=== PATIENT | female | born 1945 | race Caucasian/White ===

== ENCOUNTER 2017-06-05 08:40 | Emergency (ER) | payer MEDICARE ==
[~2017-06-05] VITALS: Ht 157.5 cm; Wt 80.0 kg
[~2017-06-05 08:40] MED LIST: AMLODIPINE BESYL5 MG PO; AMOXICILLIN/CL875 MG OR; BENAZEPRIL40 MG PO; CIPROFLOXACN500 MG PO; CLONIDINE0.2 MG PO; COUMADIN5 MG; FLORASTOR250 M1 PO; FLUZONE SPLT1 M1 IM; GABAPENTIN300 MG PO; GLUCOSAMINE CHO1 CAP PO; HYDROCHLOROT12.5 MG PO; HYDROXYZ HCL25 MG PO; KEFLEX500 M1 PO; KEFLEX500 MG PO; KENALOG-4040 MG/ML IC; LEVOTHROID100 MCG PO; LEVOTHYROXIN100 MCG PO; LEVOTHYROXIN112 MC1 PO; LEVOTHYROXIN125 MC1 PO; LOSARTAN POT50 MG PO; LOTREL1 CA1 OR; METRONIDAZOL500 MG PO; METRONIDAZOLE500 MG PO; NABUMETONE500 MG PO; NIFEDIPINE ER90 MG PO; OXYBUTYNIN5 M1 PO; SPIRONOLACT25 MG PO; SPIRONOLACTONE25 MG PO; SYNTHROID112 MCG OR; TRAMADOL HCL50 MG PO; VITAMIN B-121000 MCG PO; WARFARIN2.5 MG PO; WARFARIN5 MG PO; WATER PILL; ZOSTAVAX IM
[2017-06-05 08:51] VITALS: BP 187/90
[2017-06-05] MEDS ORDERED: METFORMIN500 M1 PO (09:06)
[2017-06-05 09:53] LABS: HEMATOCRIT 46.4 % (37.0-47.0); HEMOGLOBIN 14.9 g/dl (12.0-16.0); IMMATURE GRANULOCYTES 0.8 % (0.0-1.0); MEAN CORPUSCULAR HGB 27.3 pG CALC (26.0-32.0); MEAN CORPUSCULAR HGB CONC 32.1 g/L CALC (32.0-36.0); NEUT# 5.76 thou/uL (2.00-7.15); RED BLOOD COUNT 5.46 mill/uL (4.20-5.60); RED CELL DISTRI WIDTH 18.8 % (11.5-15.5)
[2017-06-05 10:50] LABS: ALBUMIN 4.1 g/dL (3.2-5.0); ALKALINE PHOSPHATASE 60 u/l (38-126); AMYLASE < 30 u/l (30-110); ANION GAP 17 (6-22 (CALC)); BILIRUBIN, TOTAL 0.9 mg/dL (0.0-1.4); BUN 18 mg/dL (8-23); BUN/CREATININE RATIO 26 (12-20 (CALC)); CALCIUM 9.4 mg/dL (8.4-10.2); CARBON DIOXIDE 26 mmol/l (22-30); CHLORIDE 101 mmol/l (95-108); CREATININE 0.7 mg/dL (0.5-1.0); GFR > 60 ML/MIN (>=60 (CALC)); GFR FOR AFR.AMER. > 60 ML/MIN (>=60 (CALC)); GLUCOSE 157 mg/dL (82-115); LIPASE 53 u/l (23-300); POTASSIUM 3.8 mmol/l (3.5-5.1); SGOT/AST 25 u/l (9-36); SGPT/ALT 37 u/l (11-66); SODIUM 140 mmol/l (137-146)
[2017-06-05] MEDS ORDERED: FIORICET PO (11:43)
[2017-06-05] MEDS ORDERED: ZOFRAN ODT4 MG PO (11:43)
== END 2017-06-05 12:00 | disposition home or self-care (01) ==
LOC: ED 08:40
PROVIDERS: Emergency Medicine
DX: R51 Headache (principal); R11.0 Nausea

== ENCOUNTER 2017-12-10 14:59 | Observation (INO) | payer MEDICARE ==
[~2017-12-10] VITALS: Ht 154.9 cm; Wt 102.0 kg
[~2017-12-10 14:59] MED LIST changes: +FIORICET PO; +METFORMIN500 M1 PO; +ZOFRAN ODT4 MG PO
[2017-12-10] MEDS ORDERED: LEVOTHYROXIN125 MCG PO (15:28)
[2017-12-10 15:37] LABS: HEMATOCRIT 48.9 % (37.0-47.0); HEMOGLOBIN 15.9 g/dl (12.0-16.0); IMMATURE GRANULOCYTES 0.4 % (0.0-1.0); MEAN CORPUSCULAR HGB 30.1 pG CALC (26.0-32.0); MEAN CORPUSCULAR HGB CONC 32.5 g/L CALC (32.0-36.0); NEUT# 5.61 thou/uL (2.00-7.15); RED BLOOD COUNT 5.28 mill/uL (4.20-5.60); RED CELL DISTRI WIDTH 13.8 % (11.5-15.5)
[2017-12-10 15:46] LABS: MEAN CELL VOLUME 92.6 fL CALC (80.0-100.0)
[2017-12-10 15:47] LABS: ALBUMIN 4.2 g/dL (3.2-5.0); ALKALINE PHOSPHATASE 73 u/l (38-126); ANION GAP 20 (6-22 (CALC)); BILIRUBIN, TOTAL 0.4 mg/dL (0.0-1.4); BUN 19 mg/dL (8-23); BUN/CREATININE RATIO 19 (12-20 (CALC)); CARBON DIOXIDE 25 mmol/l (22-30); CHLORIDE 103 mmol/l (95-108); GFR 54 ML/MIN (>=60 (CALC)); GFR FOR AFR.AMER. > 60 ML/MIN (>=60 (CALC)); POTASSIUM 3.7 mmol/l (3.5-5.1); SGOT/AST 27 u/l (9-36); SGPT/ALT 26 u/l (11-66); SODIUM 144 mmol/l (137-146); TOTAL PROTEIN 7.5 g/dL (6.3-8.2)
[2017-12-10 15:58] LABS: MYOGLOBIN 60 ng/mL (0 - 62)
[2017-12-10 16:18] LABS: TSH, 3RD GENERATION 2.83 uIU/mL (0.47 - 4.68)
[2017-12-10 18:45] VITALS: BP 134/90
[2017-12-10 19:42] LABS: URINE BILIRUBIN - DIPSTICK NEGATIVE (NEGATIVE); URINE BLOOD DIPSTICK NEGATIVE (NEGATIVE); URINE COLOR YELLOW; URINE GLUCOSE - DIPSTICK NEGATIVE (NEGATIVE); URINE KETONE NEGATIVE (NEGATIVE); URINE LEUK ESTERASE NEGATIVE (NEGATIVE); URINE NITRITE - DIPSTICK NEGATIVE (Negative); URINE PH 6.5 (4.5-8.0); URINE PROTEIN - DIPSTICK NEGATIVE (NEG-TRACE); URINE UROBILINOGEN - DIPSTICK 0.2 E.U./dL (0.2)
[2017-12-10 19:56] LABS: URINE CLARITY CLEAR
[2017-12-10 20:54] VITALS: BP 121/80
[2017-12-11 00:20] VITALS: BP 121/81
[2017-12-11 04:23] VITALS: BP 137/78
[2017-12-11 05:19] VITALS: BP 137/78
[2017-12-11 06:15] LABS: CHOLESTEROL HDL RATIO 6.1 (<4.4 (CALC))
[2017-12-11 08:16] VITALS: BP 139/62
[2017-12-11 10:57] LABS: ANION GAP 17 (6-22 (CALC)); BUN 19 mg/dL (8-23); BUN/CREATININE RATIO 23 (12-20 (CALC)); CARBON DIOXIDE 24 mmol/l (22-30); CHLORIDE 103 mmol/l (95-108); CREATININE 0.8 mg/dL (0.5-1.0); GFR > 60 ML/MIN (>=60 (CALC)); GFR FOR AFR.AMER. > 60 ML/MIN (>=60 (CALC)); MAGNESIUM 1.4 mg/dL (1.6-2.3); POTASSIUM 4.1 mmol/l (3.5-5.1); SODIUM 140 mmol/l (137-146)
[2017-12-11 11:17] VITALS: BP 135/87
[2017-12-11] MEDS ORDERED: MAG-OX 400400 MG PO (13:32)
[2017-12-11] MEDS ORDERED: ELIQUIS5 MG PO (13:32)
[2017-12-11] MEDS ORDERED: LOPRESSOR25 MG PO (13:32)
[2017-12-11] MEDS ORDERED: JANUVIA100 MG PO (13:34)
== END 2017-12-11 15:19 | disposition home or self-care (01) ==
LOC: ED 14:59 → ED-I 16:32 → ED 16:51 → MS2 16:52
PROVIDERS: Emergency Medicine; Nurse Practitioner Family; ADMIT Internal Medicine; ATTEND Internal Medicine
DX: I48.92 Unspecified atrial flutter (principal); I10 Essential (primary) hypertension; E03.9 Hypothyroidism, unspecified; E83.42 Hypomagnesemia; E78.5 Hyperlipidemia, unspecified; E11.42 Type 2 diabetes mellitus with diabetic polyneuropathy; E66.9 Obesity, unspecified; Z68.41 Body mass index [BMI] 40.0-44.9, adult; Z86.711 Personal history of pulmonary embolism
CPT/HCPCS: J1650; J3475

== ENCOUNTER 2018-04-16 10:48 | Inpatient (IN) | payer MEDICARE ==
[~2018-04-16] VITALS: Ht 154.9 cm; Wt 107.2 kg
[2018-04-16] VITALS (9 sets, daily range): BP systolic 81–139; BP diastolic 50–83
[~2018-04-16 10:48] MED LIST changes: +ELIQUIS5 MG PO; +JANUVIA100 MG PO; +LEVOTHYROXIN125 MCG PO; +LOPRESSOR25 MG PO; +MAG-OX 400400 MG PO
[2018-04-16 11:17] LABS: HEMATOCRIT 48.1 % (37.0-47.0); HEMOGLOBIN 15.5 g/dl (12.0-16.0); IMMATURE GRANULOCYTES 0.9 % (0.0-5.0); MEAN CELL VOLUME 91.8 fL CALC (80.0-100.0); MEAN CORPUSCULAR HGB 29.6 pG CALC (26.0-32.0); MEAN CORPUSCULAR HGB CONC 32.2 g/L CALC (32.0-36.0); NEUT# 19.62 thou/uL (2.00-7.15); RED BLOOD COUNT 5.24 mill/uL (4.20-5.60); RED CELL DISTRI WIDTH 15.2 % (11.5-15.5)
[2018-04-16 11:32] LABS: ANION GAP 18 (6-22 (CALC)); BUN 20 mg/dL (8-23); BUN/CREATININE RATIO 19 (12-20 (CALC)); CARBON DIOXIDE 28 mmol/l (22-30); CHLORIDE 98 mmol/l (95-108); GFR 54 ML/MIN (>=60 (CALC)); GFR FOR AFR.AMER. > 60 ML/MIN (>=60 (CALC)); POTASSIUM 4.1 mmol/l (3.5-5.1); SODIUM 139 mmol/l (137-146)
[2018-04-16 11:53] LABS: INFLUENZA A NONE DETECTED (NONE DETECT); INFLUENZA B NONE DETECTED (NONE DETECT)
[2018-04-16 12:31] LABS: INTERNATIONAL NORMALIZED RATIO 2.1 RATIO (0.7-1.3); PROTHROMBIN TIME 23.4 SECONDS (9.0-12.5)
[2018-04-16] MEDS ORDERED: COUMADIN5 MG PO (17:15)
[2018-04-16 19:54] LABS: URINE BILIRUBIN - DIPSTICK NEGATIVE (NEGATIVE); URINE BLOOD DIPSTICK TRACE-LYSED (NEGATIVE); URINE COLOR YELLOW; URINE GLUCOSE - DIPSTICK NEGATIVE (NEGATIVE); URINE KETONE NEGATIVE (NEGATIVE); URINE PROTEIN - DIPSTICK NEGATIVE (NEG-TRACE); URINE UROBILINOGEN - DIPSTICK 0.2 E.U./dL (0.2)
[2018-04-16 19:57] LABS: URINE CLARITY HAZY; URINE LEUK ESTERASE MODERATE (NEGATIVE); URINE NITRITE - DIPSTICK POSITIVE (Negative)
[2018-04-16 20:05] LABS: URINE BACTERIA RARE hpf
[2018-04-17] VITALS (11 sets, daily range): BP systolic 96–136; BP diastolic 46–67
[2018-04-17 05:18] LABS: IMMATURE GRANULOCYTES 0.5 % (0.0-5.0); MEAN CELL VOLUME 94.2 fL CALC (80.0-100.0); MEAN CORPUSCULAR HGB 29.8 pG CALC (26.0-32.0); MEAN CORPUSCULAR HGB CONC 31.7 g/L CALC (32.0-36.0); NEUT# 11.51 thou/uL (2.00-7.15); RED BLOOD COUNT 4.46 mill/uL (4.20-5.60); RED CELL DISTRI WIDTH 14.9 % (11.5-15.5)
[2018-04-17 05:19] LABS: HEMOGLOBIN 13.3 g/dl (12.0-16.0)
[2018-04-17 05:30] LABS: CREATININE 1.1 mg/dL (0.5-1.0); POTASSIUM 4.3 mmol/l (3.5-5.1)
[2018-04-17 05:41] LABS: ALBUMIN 3.1 g/dL (3.2-5.0); TOTAL PROTEIN 5.8 g/dL (6.3-8.2)
[2018-04-17 09:11] LABS: INTERNATIONAL NORMALIZED RATIO 1.4 RATIO (0.7-1.3); PROTHROMBIN TIME 15.4 SECONDS (9.0-12.5)
[2018-04-18 00:20] VITALS: BP 123/64
[2018-04-18 02:20] VITALS: BP 128/67
[2018-04-18 04:20] VITALS: BP 153/76
[2018-04-18 05:20] LABS: HEMOGLOBIN 12.9 g/dl (12.0-16.0); MEAN CELL VOLUME 94.3 fL CALC (80.0-100.0); MEAN CORPUSCULAR HGB 29.7 pG CALC (26.0-32.0); MEAN CORPUSCULAR HGB CONC 31.5 g/L CALC (32.0-36.0); RED BLOOD COUNT 4.35 mill/uL (4.20-5.60); RED CELL DISTRI WIDTH 14.6 % (11.5-15.5)
[2018-04-18 05:27] LABS: ANION GAP 14 (6-22 (CALC)); BUN 22 mg/dL (8-23); BUN/CREATININE RATIO 26 (12-20 (CALC)); CARBON DIOXIDE 21 mmol/l (22-30); CHLORIDE 109 mmol/l (95-108); CREATININE 0.9 mg/dL (0.5-1.0); GFR > 60 ML/MIN (>=60 (CALC)); GFR FOR AFR.AMER. > 60 ML/MIN (>=60 (CALC)); POTASSIUM 4.1 mmol/l (3.5-5.1); SODIUM 139 mmol/l (137-146)
[2018-04-18 05:40] LABS: INTERNATIONAL NORMALIZED RATIO 1.3 RATIO (0.7-1.3); PROTHROMBIN TIME 14.7 SECONDS (9.0-12.5)
[2018-04-18 07:33] VITALS: BP 146/71
[2018-04-18] MEDS ORDERED: PREDNISONE10 MG PO (09:09)
[2018-04-18] MEDS ORDERED: DOXYCYCL HYC100 MG PO (09:09)
[2018-04-18] MEDS ORDERED: LEVAQUIN750 MG PO (09:11)
== END 2018-04-18 11:35 | DRG 872 ==
LOC: ED 10:48 → ED-I 11:48 → ED 12:14 → ICU 12:15
PROVIDERS: Family Medicine; ADMIT Internal Medicine; ATTEND Internal Medicine
DX: A41.9 Sepsis, unspecified organism (principal); L03.116 Cellulitis of left lower limb; N39.0 Urinary tract infection, site not specified; Z68.41 Body mass index [BMI] 40.0-44.9, adult; J32.9 Chronic sinusitis, unspecified; J40 Bronchitis, not specified as acute or chronic; E11.40 Type 2 diabetes mellitus with diabetic neuropathy, unspecified; I10 Essential (primary) hypertension; E03.9 Hypothyroidism, unspecified; E83.42 Hypomagnesemia; E78.5 Hyperlipidemia, unspecified; I87.2 Venous insufficiency (chronic) (peripheral); I48.0 Paroxysmal atrial fibrillation; G47.33 Obstructive sleep apnea (adult) (pediatric); B96.1 Klebsiella pneumoniae [K. pneumoniae] as the cause of diseases classified elsewhere; E66.01 Morbid (severe) obesity due to excess calories; Z86.711 Personal history of pulmonary embolism; Z79.01 Long term (current) use of anticoagulants
CPT/HCPCS: J1650; J3370

== ENCOUNTER 2022-05-27 15:58 | Inpatient (IN) | payer MEDICARE, MEDICAID ==
[~2022-05-27] VITALS: Ht 154.9 cm; Wt 85.6 kg
[~2022-05-27 15:58] MED LIST changes: +DOXYCYCL HYC100 MG PO; +LEVAQUIN750 MG PO; -LEVOTHYROXIN125 MCG PO; +LEVOTHYROXINE100 MC2 PO; +PREDNISONE10 MG PO
[2022-05-27 16:19] VITALS: BP 159/99
--- NOTE | 2022-05-27 16:36 | NUR ---
PATIENT IN ED ROOM 10 WITH COMPLIANTS OF ABD PAIN AND VOMITING, ED PHYS AWARE.
[2022-05-27 16:48] VITALS: BP 144/67
[2022-05-27 16:53] LABS: IMMATURE GRANULOCYTES 0.2 % (0.0-5.0); MEAN CELL VOLUME 91.6 fL CALC (80.0-100.0); MEAN CORPUSCULAR HGB 29.3 pG CALC (26.0-32.0); NEUT# 9.99 thou/uL (2.00-7.15); RED BLOOD COUNT 5.93 mill/uL (4.20-5.60); RED CELL DISTRI WIDTH 13.3 % (11.5-15.5)
[2022-05-27 16:59] LABS: HEMATOCRIT 54.3 % (37.0-47.0); HEMOGLOBIN 17.4 g/dl (12.0-16.0)
[2022-05-27 17:06] LABS: GFR FOR AFR.AMER. > 60 ML/MIN (>=60 (CALC)); GFR OTHER RACES 60 ML/MIN (>=60 (CALC))
[2022-05-27 17:53] LABS: ANION GAP 18 (6-22 (CALC)); BILIRUBIN, TOTAL 0.6 mg/dL (0.0-1.4); BUN 19 mg/dL (8-23); BUN/CREATININE RATIO 23 (12-20 (CALC)); CARBON DIOXIDE 21 mmol/l (22-30); CHLORIDE 106 mmol/l (95-108); CREATININE 0.8 mg/dL (0.5-1.0); GFR FOR AFR.AMER. > 60 ML/MIN (>=60 (CALC)); GFR OTHER RACES > 60 ML/MIN (>=60 (CALC)); LIPASE 111 u/l (23-300); POTASSIUM 4.2 mmol/l (3.5-5.1); SODIUM 141 mmol/l (137-146)
[2022-05-27 17:54] LABS: ALBUMIN 4.4 g/dL (3.2-5.0); ALKALINE PHOSPHATASE 100 u/l (38-126); SGOT/AST 49 u/l (9-36)
--- NOTE | 2022-05-27 19:02 | NUR ---
REPORT GIVEN TO WINE MERCHANT RN
--- NOTE | 2022-05-27 20:15 | NUR ---
Reassessment of patient completed. No distress noted.
--- NOTE | 2022-05-27 20:45 | NUR ---
PT ARRIVED TO [facility] VIA STRETCHER ACCOMPANIED BY ER NURSE, PT ALERT AND ORIENTED X3, STEADY GAIT OFF STRETCHER, PT HAS NGT TO L NARE, CHECKED PLACEMENT, AND CONNECTED TO LIS, LIGHT BROWN LIQUID NOTED, PT HAS TRACE EDEMA TO BLE, SENIOR MAINTENANCE MECHANIC SOCKS APPLIED, BSC AT BEDSIDE. ORIENTED PT TO ROOM AND CALL LIGHT, DISCUSSED POC, AND NPO STATUS, VERBALIZED UNDERSTANDING. MOUTH SWABS PROVIDED. NOTED AREA TO BUTTOCK STAGE II. ADMISSION ASSESSMENT COMPLETED, CALL LIGHT IN REACH,CONTINUE TO MONITOR.
--- NOTE | 2022-05-27 20:45 | NUR ---
ADMITTED TO [facility] FLOOR. PATIENT AWARE AND AGREEABLE WITH PLAN OF PLAN OF CARE. NO ACUTE DISTRESS NOTED. WILL CONTINUE WITH PLAN OF CARE.
[2022-05-27 21:18] VITALS: BP 159/96
[2022-05-28] VITALS (7 sets, daily range): BP systolic 124–149; BP diastolic 54–70
--- NOTE | 2022-05-28 00:28 | NUR ---
PT RESTING IN BED ZOSYN INFUSING, NO SIGNS OF DISTRESS NOTED, RESP EVEN AND UNLABORED. ED CALLED REQUESTING STAT EKG FOR POSSIBLE RHYTHM CHANGE, EKG OBTAINED AND SENT TO ER MD FOR REVIEW, NO CHANGE SINCE INITIAL EKG OBTAINED, NO NEW ORDERS. CALL LIGHT IN REACH,CONTINUE TO MONITOR.
--- NOTE | 2022-05-28 04:00 | NUR ---
PT RESTING IN BED, NO SIGNS OF DISTRESS NOTED, RESP EVEN AND UNLABORED. CALL LIGHT IN REACH,CONTINUE TO MONITOR.
[2022-05-28 05:01] LABS: URINE BILIRUBIN - DIPSTICK NEGATIVE (NEGATIVE); URINE BLOOD DIPSTICK TRACE-INTACT (NEGATIVE); URINE COLOR YELLOW; URINE GLUCOSE - DIPSTICK NEGATIVE (NEGATIVE); URINE KETONE NEGATIVE (NEGATIVE); URINE PH 5.5 (4.5-8.0); URINE SPECIFIC GRAVITY 1.025; URINE UROBILINOGEN - DIPSTICK 0.2 E.U./dL (0.2)
[2022-05-28 05:11] LABS: URINE LEUK ESTERASE SMALL (NEGATIVE); URINE NITRITE - DIPSTICK NEGATIVE (Negative); URINE PROTEIN - DIPSTICK NEGATIVE (NEG-TRACE)
[2022-05-28 05:12] LABS: URINE EPITHELIAL CELLS FEW EPI/hpf (0-FEW); URINE WBC >100 WBC/hpf (0-5)
[2022-05-28 05:13] LABS: URINE BACTERIA MODERATE hpf
--- NOTE | 2022-05-28 07:40 | NUR ---
PT RESTING IN SEMI FOWLERS POSITION. PT A/OX3. RESPIRATIONS EVEN AND UNLABORED ON ROOM AIR. LUNG SOUNDS CLEAR. HEART RHYTHM NORMAL. BOWEL SOUNDS ACTIVE. #20G LAC PATENT. LEFT NARE NG TUBE NOTED WITH MINIMAL AMIN OUTPUT. TRACE EDEMA NOTED TO BLE. NPO AT THIS TIME. PT DENIES OF ANY PAINS OR DISCOMFORTS AT THIS TIME. ALL SAFTEY PRECAUTIONS ARE IN PLACE WITH CALL LIGHT IN REACH
--- NOTE | 2022-05-28 09:50 | NUR ---
DR PANIAGUA AT BEDSIDE
[2022-05-28 10:41] LABS: INTERNATIONAL NORMALIZED RATIO 2.9 RATIO (0.7-1.3); PROTHROMBIN TIME 27.1 SECONDS (9.0-12.5)
[2022-05-28 11:02] LABS: IMMATURE GRANULOCYTES 0.1 % (0.0-5.0); MEAN CELL VOLUME 90.5 fL CALC (80.0-100.0); MEAN CORPUSCULAR HGB 29.6 pG CALC (26.0-32.0); MEAN CORPUSCULAR HGB CONC 32.7 g/dL CAL (32.0-36.0); NEUT# 6.42 thou/uL (2.00-7.15); RED BLOOD COUNT 4.73 mill/uL (4.20-5.60); RED CELL DISTRI WIDTH 13.3 % (11.5-15.5)
[2022-05-28 11:41] LABS: HEMATOCRIT 42.8 % (37.0-47.0)
--- NOTE | 2022-05-28 12:30 | NUR ---
PT RESTING IN SEMI FOWLERS POSITION. RESPIRATIONS EVEN AND UNLABORED ON ROOM AIR. TELE MONITORING IN PLACE. IV DISLODGED. NEW #22G LFA STARTED, SITE PATENT. PT DENIES OF ANY PAINS OR DISCOMFORTS AT THIS TIME. ALL SAFTEY PRECAUTIONS ARE IN PLACE WITH CALL LIGHT IN REACH
--- NOTE | 2022-05-28 15:21 | NUR ---
PT RESTING IN SEMI FOWLERS POSITION. RESPIRATIONS EVEN AND UNLABORED ON ROOM AIR. #22G LFA PATENT. TELE MONITORING IN PLACE. LAST DOSE OF ORAL CONTRAST ADMINISTERED THROUGH NG TUBE AT 1500. RADIOLOGY INFORMED. PT DENIES OF ANY NEEDS AT THIS TIME. ALL SAFETY PRECAUTIONSA RE IN PLACE WITH CALL LIGHT IN REACH
--- NOTE | 2022-05-28 18:57 | NUR ---
VERBAL ORDER TO KEEP NG TUBE CLAMP
[2022-05-29 00:05] VITALS: BP 142/65
[2022-05-29 04:03] VITALS: BP 145/66
[2022-05-29 05:24] LABS: HEMATOCRIT 40.2 % (37.0-47.0); HEMOGLOBIN 13.3 g/dl (12.0-16.0); IMMATURE GRANULOCYTES 0.3 % (0.0-5.0); MEAN CELL VOLUME 90.3 fL CALC (80.0-100.0); MEAN CORPUSCULAR HGB 29.9 pG CALC (26.0-32.0); MEAN CORPUSCULAR HGB CONC 33.1 g/dL CAL (32.0-36.0); NEUT# 4.02 thou/uL (2.00-7.15); RED BLOOD COUNT 4.45 mill/uL (4.20-5.60); RED CELL DISTRI WIDTH 13.3 % (11.5-15.5)
[2022-05-29 05:35] LABS: INTERNATIONAL NORMALIZED RATIO 2.5 RATIO (0.7-1.3); PROTHROMBIN TIME 23.5 SECONDS (9.0-12.5)
[2022-05-29 05:47] LABS: ALKALINE PHOSPHATASE 68 u/l (38-126); ANION GAP 8 (6-22 (CALC)); BUN 12 mg/dL (8-23); BUN/CREATININE RATIO 18 (12-20 (CALC)); CARBON DIOXIDE 25 mmol/l (22-30); CHLORIDE 110 mmol/l (95-108); CREATININE 0.7 mg/dL (0.5-1.0); GFR FOR AFR.AMER. > 60 ML/MIN (>=60 (CALC)); GFR OTHER RACES > 60 ML/MIN (>=60 (CALC)); POTASSIUM 3.6 mmol/l (3.5-5.1); SGOT/AST 30 u/l (9-36); SODIUM 139 mmol/l (137-146)
[2022-05-29 05:48] LABS: ALBUMIN 3.1 g/dL (3.2-5.0); TOTAL PROTEIN 5.5 g/dL (6.3-8.2)
--- NOTE | 2022-05-29 05:52 | NUR ---
PATIENT HAD NO BOWEL MOVEMENT ON THIS SHIFT DR MEMBRENO CALLED AND SAID ONCE SHE HAS A BM THE NG TUBE CAN COME OUT
[2022-05-29 07:32] VITALS: BP 141/65
--- NOTE | 2022-05-29 07:42 | NUR ---
PT RESTING IN SEMI FOWLERS POSITION. PT A/OX3. RESPIRATIONS EVEN AND UNLABORED ON ROOM AIR. LUNG SOUNDS CLEAR. HEART RHYTHM NORMAL WITH TELE IN PLACE. BOWEL SOUNDS ACTIVE. #22G LFA INFUSING WITH IVF PER ORDER, SITE PATENT. STAGE 2 TO BUTTOCKS NOTED. DRESSING REMAINS CDI. TRACE EDEMA TO BLE. PT DENIES OF ANY PAINS OR DISCOMFORTS AT THIS TIME. ALL SAFTEY PRECAUTIONS ARE IN PLACE WITH CALL LIGHT IN REACH
--- NOTE | 2022-05-29 08:45 | NUR ---
ORDERS TO REMOVED NG TUBE IF HAVING BM . PT REPORTS 2 BM OVER NIGHT. NG TUBE REMOVED AT THIS TIME. PT TOLERATED WELL
[2022-05-29] MEDS ORDERED: GABAPENTIN300 M2 PO (09:44)
[2022-05-29] MEDS ORDERED: IRON325 M1 PO (09:45)
[2022-05-29] MEDS ORDERED: WARFARIN SODIU2.5 M1 PO (09:45)
[2022-05-29] MEDS ORDERED: CALCIUM500 M5 PO (09:45)
[2022-05-29] MEDS ORDERED: LANTUS100 UNIT (09:46)
[2022-05-29] MEDS ORDERED: DIGOX125 MCG PO (09:46)
[2022-05-29] MEDS ORDERED: LOPRESSOR25 M1 PO (09:47)
[2022-05-29 11:29] VITALS: BP 144/54
--- NOTE | 2022-05-29 12:06 | NUR ---
PT RESTING IN SEMI FOWLERS POSITION. RESPIRATIONS EVEN AND UNLABORED UNLABORED ON ROOM AIR. #22G LFA LEAKING, PT REFUSING NEW IV SITE AT THIS TIME DUE TO POSSIBLE DC. ABX HELD. MD TO BE INFORMED. TELE MONITORING IN PLACE. REGULAR DIET PER DR PANIAGUA . PT DENIES OF ANY ADDIITONAL NEEDS. ALL SAFTEY PRECAUTIONS ARE IN PLACE WITH CALL LIGHT IN REACH.
--- NOTE | 2022-05-29 13:53 | NUR ---
PT EDUCATED ON DC INSTRUCTIONS AND NEW MEDICTIONS .IV REMOVED WITH CATH INTACT. TELE REMOVED, ATTEMPTED TO CALL ER. DAUGHTER TO ARRIVED.
--- NOTE | 2022-05-29 14:43 | NUR ---
Discharge instructions given. Patient verbalizes understanding of same. Discharged in stable condition via Wheelchair to Home with staff. All belongings sent with pt.
== END 2022-05-29 14:42 | disposition home or self-care (01) | DRG 389 ==
LOC: ED 15:58 → ED-I 18:37 → ED 19:14 → MS2 19:15
PROVIDERS: Family Medicine; ADMIT Internal Medicine; ATTEND Internal Medicine
DX: K56.609 Unspecified intestinal obstruction, unspecified as to partial versus complete obstruction (principal); K86.3 Pseudocyst of pancreas; K59.00 Constipation, unspecified; I10 Essential (primary) hypertension; E11.40 Type 2 diabetes mellitus with diabetic neuropathy, unspecified; E03.9 Hypothyroidism, unspecified; I48.91 Unspecified atrial fibrillation; E86.0 Dehydration; Z86.711 Personal history of pulmonary embolism; Z79.01 Long term (current) use of anticoagulants; Z90.49 Acquired absence of other specified parts of digestive tract; Z79.84 Long term (current) use of oral hypoglycemic drugs; Z20.822 Contact with and (suspected) exposure to COVID-19
CPT/HCPCS: Q9967

== ENCOUNTER 2024-05-02 15:57 | Emergency (ER) | payer MEDICARE, MEDICAID ==
[~2024-05-02 15:57] MED LIST changes: -ASPIRIN 81 MG/TAB PO ONE; -NITROGLYCERIN 0.4 MG/TAB SL ONE
== END 2024-05-02 18:47 | disposition short-term general hospital (02) ==
LOC: ED 16:30
DX: I21.4 Non-ST elevation (NSTEMI) myocardial infarction (principal); I10 Essential (primary) hypertension; E11.40 Type 2 diabetes mellitus with diabetic neuropathy, unspecified; E03.9 Hypothyroidism, unspecified; Z86.711 Personal history of pulmonary embolism; I48.91 Unspecified atrial fibrillation; Z79.84 Long term (current) use of oral hypoglycemic drugs; Z79.4 Long term (current) use of insulin

== ENCOUNTER → 2024-05-02 | Emergency (ER) | payer MEDICARE, MEDICAID ==
[2024-05-02] VITALS (9 sets, daily range): BP systolic 118–154; BP diastolic 62–80
[~2024-05-02] VITALS: Ht 154.9 cm; Wt 81.6 kg
[~2024-05-02] MED LIST changes: +ASPIRIN 81 MG/TAB PO ONE; +CALCIUM500 M5 PO; +DIGOX125 MCG PO; +GABAPENTIN300 M2 PO; +IRON325 M1 PO; +LANTUS100 UNIT; +LOPRESSOR25 M1 PO; +NITROGLYCERIN 0.4 MG/TAB SL ONE; +WARFARIN SODIU2.5 M1 PO
[2024-05-02 10:33] LABS: BASO% 0.8 % (0-3); EOS% 1.2 % (0-8); HEMATOCRIT 45.5 % (37.0-47.0); HEMOGLOBIN 14.3 g/dl (12.0-16.0); IMMATURE GRANULOCYTES 0.2 % (0.0-5.0); MEAN CORPUSCULAR HGB 29.2 pG CALC (26.0-32.0); MEAN CORPUSCULAR HGB CONC 31.4 g/dL CAL (32.0-36.0); MONO% 11.3 % (2-13); NEUT% 57.5 % (42-76); RED BLOOD COUNT 4.89 mill/uL (4.20-5.60); RED CELL DISTRI WIDTH 13.4 % (11.5-15.5)
[2024-05-02 10:53] LABS: INTERNATIONAL NORMALIZED RATIO 2.6 RATIO (0.7-1.3)
[2024-05-02 11:00] LABS: BILIRUBIN, TOTAL 0.8 mg/dL (0.02-1.3); CREATININE 0.7 mg/dL (0.5-1.0); POTASSIUM 3.8 mmol/l (3.5-5.1)
[2024-05-02 11:01] LABS: ALBUMIN 4.3 g/dL (3.2-5.0); TOTAL PROTEIN 8.1 g/dL (6.3-8.2)
== END | disposition left against medical advice (07) ==
LOC: ED 10:02
PROVIDERS: Emergency Medicine
DX: R07.9 Chest pain, unspecified (principal); I10 Essential (primary) hypertension; E11.40 Type 2 diabetes mellitus with diabetic neuropathy, unspecified; E03.9 Hypothyroidism, unspecified; I48.91 Unspecified atrial fibrillation; Z86.711 Personal history of pulmonary embolism; Z79.84 Long term (current) use of oral hypoglycemic drugs; Z79.4 Long term (current) use of insulin; Z53.29 Procedure and treatment not carried out because of patient's decision for other reasons